=== PATIENT | female | born 1940 | race Caucasian/White ===

== ENCOUNTER → 2018-03-30 | Outpatient (CLI) | payer OTHER | LOC: FIMAGING 10:08 | PROVIDERS: ATTEND Internal Medicine | DX: R92.8 Other abnormal and inconclusive findings on diagnostic imaging of breast (principal) ==

== ENCOUNTER 2018-05-22 09:28 | Observation (INO) | payer OTHER ==
[~2018-05-22 09:28] MED LIST: POVIDONE-IODINE 20 ML in SODIUM CL IRRIG SOLUTION 500 ML IRR ONE; ROPIVACAINE 0.2% 80 MG, EPINEPHrine 0.2 MG, KETOROLAC TROMETHAMINE 30 MG in SYRINGE 0 ML IU ONE; TRANEXAMIC ACID 1,000 MG in NS 100 ML IV ONE; TRANEXAMIC ACID 3,000 MG in NS (SYRINGE) 50 ML IRR ONE
[2018-05-22] MEDS ORDERED: ACETAMINOPHEN 325 MG TAB PO ONE (10:04)
[2018-05-22] MEDS ORDERED: FAMOTIDINE 20 MG TAB PO ONE (10:04)
[2018-05-22] MEDS ORDERED: LIDOCAINE 1% 2 ML INJ ID PRN (10:04)
[2018-05-22] MEDS ORDERED: GABAPENTIN 300 MG CAP PO ONE (10:04)
[2018-05-22] MEDS ORDERED: LR 1,000 ML IV ONE (10:04)
[2018-05-22] MEDS ORDERED: ONDANSETRON 4 MG/2 ML VIAL IVP ONE (10:04)
[2018-05-22] MEDS ORDERED: ceFAZolin 2 GM/DEXTROSE 100 ML IV ONE (10:04)
[2018-05-22] MEDS ORDERED: DEXAMETHASONE 4 MG/ML VIAL IVP ONE (10:04)
[2018-05-22] MEDS ORDERED: VANCOMYCIN 1 GM VIAL ONE (12:23)
[2018-05-22] MEDS ORDERED: TRANEXAMIC ACID 3,000 MG/50 ML BAG IRR ONE (12:23)
[2018-05-22] MEDS ORDERED: ceFAZolin 1 GM/5 ML SYR ONE (12:24)
[2018-05-22] MEDS ORDERED: ceFAZolin 1 GM VIAL ONE (12:24)
--- NOTE | 2018-05-22 12:24 | PDANEPAE ---
ANE History of Present Illness 77 y/o female needing a right knee arthroplasty ANE Past Medical History - Cardiovascular History Hx Hypertension: No Hx Arrhythmias: No Hx Chest Pain: No Hx Coronary Artery / Peripheral Vascular Disease: No Hx CHF / Valvular Disease: No Hx Palpitations: No - Pulmonary History Hx COPD: No Hx Asthma/Reactive Airway Disease: No Hx Recent Upper Respiratory Infection: No Hx Oxygen in Use at Home: No Hx Sleep Apnea: No Sleep Apnea Screening Result - Last Documented: Negative - Neurologic History Hx Cerebrovascular Accident: No Hx Seizures: No Hx Dementia: No - Endocrine History Hx Diabetes: No Endocrine History Comment: HYPOTHYROID - Renal History Hx Renal Disorders: Yes Renal History Comment: SLIGHT UA LEAKAGE WITH SNEEZING. PREV KIDNEY STONE - Liver History Hx Hepatic Disorders: No - Neurological & Psychiatric Hx Hx Neurological and Psychiatric Disorders: No - Cancer History Hx Cancer: No - Congenital Disorder History Hx Congenital Disorders: No - GI History Hx Gastrointestinal Disorders: Yes Gastrointestinal History Comment: OCCASIONAL HEARTBURN - Other Health History Other Health History: OSTEOPENIA. OSTEOARTHRITIS - Chronic Pain History Chronic Pain: Yes (RT KNEE) - Surgical History Prior Surgeries: LT TOTAL KNEE 2011. FELIPE KNEE SCOPES. APPENDECTOMY. TONSILLECTOMY ANE Review of Systems Review of Systems: - Exercise capacity METS (RN): 4 METS ANE Patient History - Allergies Allergies/Adverse Reactions: hydrocodone bitartrate [From Vicodin] Allergy (Mild, Verified 05/18/18 15:11) Vomiting Sulfa (Sulfonamide Antibiotics) Allergy (Mild, Verified 05/18/18 15:10) NAUSEA oxycodone [From Percocet] Allergy (Verified 05/18/18 15:43) bowel obstruction - Home Medications Home Medications: Cholecalciferol Vit D3 [Vitamin D3 2000 units (OTC)] 2,000 units PO DAILY [Last Taken 05/20/18] Simvastatin [Zocor 40 mg (RX)] 40 mg PO HS 03/14/12 [Last Taken 05/21/18] Levothyroxine [Synthroid 75 mcg (*)] 75 mcg PO DAILY06 05/18/18 [Last Taken 01/01] Pantoprazole Sodium [Protonix 40mg (*)] 40 mg PO BID PRN 05/18/18 [Last Taken ] - NPO status NPO Since - Liquids (Date): 05/22/18 NPO Since - Liquids (Time): 08:30 NPO Since - Solids (Date): 05/21/18 NPO Since - Solids (Time): 21:00 - Smoking Hx Smoking Status: Never smoked ANE Labs/Vital Signs - Vital Signs Blood Pressure: 130/73 Heart Rate: 75 Respiratory Rate: 20 O2 Sat (%): 95 Height: 154.94 cm Weight: 66.224 kg ANE Physical Exam - ASA Status ASA Status: II ANE Anesthesia Plan Anesthesia Plan: spinal Regional Anesthesia: adductor canal FNB
--- NOTE | 2018-05-22 12:36 | PDHPUP ---
History & Physical Update H&P update statement: This history and physical update is based on an assessment of the patient which was completed after admission or registration (within 24 hours), but prior to the surgery/procedure. H&P update: H&P reviewed & patient examined
[2018-05-22] MEDS ORDERED: PROPOFOL/EMULSION 500 MG/50 ML BOTTLE IV ONE (13:02)
[2018-05-22] MEDS ORDERED: LIDOCAINE 2% 5 ML SDV ONE (13:38)
[2018-05-22] MEDS ORDERED: NALOXONE HCL 0.4 MG/ML INJ IVP PRN (14:39)
[2018-05-22] MEDS ORDERED: fentaNYL 100 MCG/2 ML INJ IVP PRN (14:39)
[2018-05-22] MEDS ORDERED: LR 500 ML IV PRN (14:39)
[2018-05-22] MEDS ORDERED: PHENYLEPHRINE HCL 100 MCG/ML SYR IVP PRN (14:39)
--- NOTE | 2018-05-22 14:39 | POSTANESTH ---
Post Anesthetic Evaluation Respiratory Status: Normal, Stable Level of Consciousness/Mental Status: Can Participate in Eval Pain Control: Adequate, Prn Tx Ordered Nausea/Vomiting Control: Adequate, Prn Tx Ordered Complications Possibly Related to Anesthesia: None Noted
[2018-05-22] MEDS ORDERED: ROPIVACAINE HCL 150 MG/30 ML INJ ONE (14:49)
--- NOTE | 2018-05-22 14:57 | POSTOPPROG ---
Post Op Note Date of Operation: 05/22/18 Surgeon: Garfield Arora Computer Repair Instructor: Olivier Anesthesiologist: Maria Luisa Anesthesia: IV Sedation, Spinal Post-op Diagnosis: Right knee degenerative arthritis Procedure: Right total knee arthroplasty Inf/Abcess present in the surg proc area at time of surgery?: No EBL: 50-100 (Adductor canal block in PACU with indwelling catheter.)
[2018-05-22] MEDS ORDERED: PANTOPRAZOLE SODIUM 40 MG TAB PO PRN (15:07)
[2018-05-22] MEDS ORDERED: CYCLOBENZAPRINE 10 MG TAB PO PRN (15:08)
[2018-05-22] MEDS ORDERED: METOCLOPRAMIDE 10 MG/2 ML VIAL IVP PRN (15:08)
[2018-05-22] MEDS ORDERED: DIPHENOXYLATE/ATROPINE LOMOTIL 1 TAB PO PRN (15:08)
[2018-05-22] MEDS ORDERED: NS 500 ML IV PRN (15:08)
[2018-05-22] MEDS ORDERED: MAGNESIUM HYDROXIDE 30 ML UDCUP PO PRN (15:08)
[2018-05-22] MEDS ORDERED: LACTULOSE 20 GM/30 ML UDCUP PO PRN (15:08)
[2018-05-22] MEDS ORDERED: ONDANSETRON 4 MG/2 ML VIAL IVP PRN (15:08)
[2018-05-22] MEDS ORDERED: diphenhydrAMINE 25 MG CAP PO PRN (15:08)
[2018-05-22] MEDS ORDERED: BISACODYL 10 MG SUPP PR PRN (15:08)
[2018-05-22] MEDS ORDERED: TEMAZEPAM 15 MG CAP PO PRN (15:08)
[2018-05-22] MEDS ORDERED: POLYETHYLENE GLYCOL 3350 17 GM PKT PO PRN (15:08)
[2018-05-22] MEDS ORDERED: ONDANSETRON DISINTEGRATING 4 MG TAB PO PRN (15:08)
[2018-05-22] MEDS ORDERED: PROMETHAZINE HCL 25 MG SUPPR PR PRN (15:08)
[2018-05-22] MEDS ORDERED: PROMETHAZINE HCL 25 MG/ML INJ IVP PRN (15:08)
[2018-05-22] MEDS ORDERED: LR 1,000 ML IV SCH (15:30)
--- NOTE | 2018-05-22 15:52 | GOP ---
DATE OF OPERATION: 05/22/2018 SURGEON: Garfield Arora MD DIESEL ROLLER OPERATOR: CAREY Wade and Kevyn Blackburn CFA. ANESTHESIA: A combination of Marcaine, spinal, IV sedation, and adductor canal block. ANESTHESIOLOGIST: Dr. Deloris Glass PREOPERATIVE DIAGNOSIS: Right knee severe degenerative arthritis with varus deformity. POSTOPERATIVE DIAGNOSIS: Right knee severe degenerative arthritis with varus deformity. PROCEDURE PERFORMED: Right total knee arthroplasty, cemented, Larson and Nephew Journey II, posterior stabilized. FINDINGS: DESCRIPTION OF PROCEDURE: The patient was given 2 g of IV Ancef preoperatively within 60 minutes of surgery. She also received IV tranexamic acid at a dose of 1000 mg. She was placed on the operating room table and given spinal anesthesia with Marcaine by Dr. Glass. She was then placed supine and giv en IV sedation. A Dobson catheter was not used. She wore a TOLU stocking and SCD on the nonoperative leg. Her right lower extremity was prepped with ChloraPrep from the upper thigh tourniquet to the ti ps of the toes. It was draped free using sterile sheets, stockinette, and Ioban plastic adhesive sabra pe. The lower leg was wrapped with compressive Coban. The leg was exsanguinated with elevation and a 6-i nch compressive wrap, and the tourniquet was inflated to 250 mmHg. The [employer] time-out was performed to verify the correct patient identity and the c orrect surgical side and site. The [place] time-out was also performed. The Soft Scienceayo leg holding device was sterilely attached to the operating room table and used throughout the procedure to help position the knee. A straight midline incision made centered on the patella. Subcutaneous tissues were sharply divided and hemostasis was obtained using electrocautery. A medial subcutaneous flap was developed and the capsule and synovium were opened in medial parapatellar fash ion. Degenerative changes were present in her medial compartment and patellofemoral joint. The medi al capsule and periosteum were elevated off the rim of the medial tibial plateau all the way around t o the posteromedial corner. Her medial collateral ligament was released enough to balance the medial side of the knee and helped correct the varus deformity. In order to improve exposure, her patella was prepared first. The original thickness of the patella was measured. Peripheral osteophytes were removed. I cut a flat surface on the back of the patella. The patella was sized for a 35 mm round resurfacing component. I removed enough bone from the jordan lla, such that the remaining bone, plus the thickness of the patellar component recreated the origina l thickness of the patella. The composite thickness was 23 mm. The intramedullary alignment guide system was used to set up the distal femoral cut. The distal femu r was cut in 6 degrees of valgus. I made a +2 mm cut on the distal femur. The sizing jig was used t o determine proper femoral sizing. She was a true size 3 without a shift. The 5-in-1 cutting block was applied, and the anterior and posterior condylar cuts and chamfer cuts were made. The final jig was used to remove the central portion of the distal femur to accommodate the posterior stabilized fe moral component. I was careful to determine proper rotation by referencing off [place]ites[place] line and o ther bony landmarks. Each cut was checked for accuracy. The femur was sized for a size 3 posterior stabilized component. Next, the tibia was prepared. The proximal tibial cut was made using the extramedullary alignment gu jared system. The cut was made in a few degrees of posterior slope. I was careful to achieve proper v arus valgus alignment and proper rotation. The posterior compartment was cleared of meniscal remnant s. Osteophytes were removed from the back of her femoral condyles. I checked the flexion and extens ion gaps. I had to do a little bit more release on her medial collateral ligament in order to get eq ual, balanced and rectangular gaps. The tibia was sized for a size 3 component. With the trial comp onents in place, I selected an 11 mm polyethylene posterior stabilized tibial insert. The knee came to full extension and flexed to 130 degrees. Her ligaments were stable and balanced in 90 degrees of flexion and in 5 degrees of extension. The trial patellar button was applied, and tracking was chec ked. Tracking was excellent without any digital pressure. 40 mL of the joint anesthetic cocktail were injected into the posterior capsule, the quadriceps muscl e and tendon areas, and the subcutaneous tissues along the skin edges. The surfaces were prepared for cementing. They were carefully cleaned with the pulsating lavage irri gation and thoroughly dried. The CarboJet device was used to blow dry the cancellous surfaces. A do uble batch of high viscosity methylmethacrylate cement with 2 g of powdered vancomycin was mixed. Wh ile it was still in a doughy state, all 3 components were cemented in place. Excess cement was remov ed before it hardened. The 11 mm trial tibial insert was tried again and was the proper thickness. The actual component was inserted and locked into place. The knee was thoroughly irrigated 1 final time with a dilute Betadi ne solution. The tourniquet was deflated. Total tourniquet time was 49 minutes. I instilled 50 cc of tranexamic acid solution into the knee joint. The knee was packed with a Kerlix and wrapped with a 6 inch SAL w rap and left this way for about 3 minutes. The vastus medialis portion of the extensor mechanism was repaired with several interrupted figure-of -eight #2 FiberWire sutures. The capsule and synovium were closed first with multiple interrupted fi [id number] 0 PDS sutures, followed by a running. barbed Ethicon Stratafix PDO suture. The subcuta neous tissues were closed with a running 0 barbed Ethicon Stratafix Monoderm suture. The skin was cl osed with a running 3-0 barbed Ethicon Stratafix Monoderm subcuticular suture. The skin was sealed w ith 1/2 inch Steri-Strips. The wound was covered with a large Mepilex waterproof dressing and a 6-in ch compressive wrap. A long-leg TOLU stocking and SCD were applied, followed by the cooling device. The patient wore a stocking and SCD on the opposite leg during the procedure. The sacral Mepilex bibiana ssing was applied. I used a size 3 Larson and Nephew cemented Oxinium posterior stabilized femoral component, a size 3 ce mented tibial base plate, 11 mm posterior stabilized tibial insert, and a 35 mm cemented round all-po lyethylene resurfacing patellar component. The estimated blood loss following deflation of the tourniquet was about 100 cc. Sponge and needle count were correct on 2 occasions. She was awakened from anesthesia, transferred to her [facility], and taken to PACU in satisfacto ry condition. There were no recognized intraoperative complications. In the PACU for additional pos toperative pain control, Dr. Glass performed an adductor canal block with an indwelling catheter. Mando Pascal and Kevyn Blackburn acted as surgical assistants. Their assistance was a medical necess ity for safe completion of the procedure. /[id number]/MODL
[2018-05-22] MEDS: ACETAMINOPHEN 325 MG TAB PO SCH (17:21)
[2018-05-22] MEDS: ATORVASTATIN CALCIUM 20 MG TAB PO SCH (17:21)
[2018-05-22] MEDS: KETOROLAC 15 MG/1 ML SDV IVP SCH (17:22)
[2018-05-22] MEDS: traMADol 50 MG TAB PO PRN (18:38)
[2018-05-22] MEDS: SENNOSIDES/DOCUSATE SODIUM TAB PO SCH (20:13)
[2018-05-22] MEDS: FAMOTIDINE 20 MG TAB PO SCH (20:13)
[2018-05-22] MEDS: ceFAZolin 2 GM/DEXTROSE 100 ML IV SCH (20:36)
[2018-05-22] MEDS: ASPIRIN 325 MG TAB PO SCH (22:59)
[2018-05-23] MEDS: KETOROLAC 15 MG/1 ML SDV IVP SCH ×3 (00:47→11:35)
[2018-05-23] MEDS: ACETAMINOPHEN 325 MG TAB PO SCH ×3 (00:49→11:35)
[2018-05-23] MEDS: ceFAZolin 2 GM/DEXTROSE 100 ML IV SCH (05:13)
[2018-05-23] MEDS ORDERED: LEVOTHYROXINE 75 MCG TAB PO SCH (06:00)
[2018-05-23] MEDS: ASPIRIN 325 MG TAB PO SCH (08:08)
[2018-05-23] MEDS: FAMOTIDINE 20 MG TAB PO SCH (08:08)
[2018-05-23] MEDS: ATORVASTATIN CALCIUM 20 MG TAB PO SCH (08:09)
[2018-05-23] MEDS: SENNOSIDES/DOCUSATE SODIUM TAB PO SCH (08:09)
[2018-05-23] MEDS: traMADol 50 MG TAB PO PRN ×2 (08:13→14:20)
[2018-05-23] MEDS ORDERED: FERROUS SULFATE 140 MG TAB.ER PO SCH (09:00)
--- NOTE | 2018-05-23 09:23 | SOAPPROG ---
SOAP Progress Note Assessment/Plan: Assessment: Afebrile. Mild pain. She has been walking in the [place] and she has done stairs with physical therapy. Her dressing is dry. She has 90 degrees of flexion. Postop H&H are good. Postop films look excellent. Plan: Long leg alignment film. Discharge later this morning. 05/23/18 09:22 Objective: Vital Signs Temp Pulse Resp BP Pulse Ox 36.8 C 63 16 114/60 97 05/23/18 04:00 05/23/18 07:50 05/23/18 07:50 05/23/18 07:50 05/23/18 07:50 Laboratory Results 05/23/18 04:19 05/22/18 05/23/18 05/24/18 05:59 05:59 05:59 Intake Total 2010 Output Total 1500 550 Balance 510 -550 ICD10 Worksheet Patient Problems: Problems Problem Status Onset Osteoarthritis of right knee Acute
--- NOTE | 2018-05-23 09:39 | ASMTLACE ---
MAURIE Length of stay for Answers: 1 day current admission Acuity / Level of Answers: No Care: Did the patient have an inpatient admission? Comorbidities - select Answers: Opioid dependence all that apply / Chronic pain Other Notes: Hypothyroid # of Emergency department Answers: 1-2 visits in the last 6 months Score: 7 Date Signed: 05/23/2018 09:39 AM Electronically Signed By:Dina Johnson RN
--- NOTE | 2018-05-23 09:40 | GDS ---
ADMISSION DIAGNOSIS: Right knee severe degenerative arthritis. DISCHARGE DIAGNOSIS: Right knee severe degenerative arthritis. OPERATION PERFORMED: May 22, 2018: A right total knee arthroplasty. POSTOPERATIVE COMPLICATIONS: None. CONDITION ON DISCHARGE: Improved. DESCRIPTION OF HOSPITAL COURSE: The patient was admitted to the hospital the morning of surgery. He r admission CBC, electrolytes, BUN, and creatinine were normal. The same day, under a combination of Marcaine, spinal, IV sedation, and adductor canal block, she underwent a right total knee arthroplas ty. Postoperatively, she was treated with multimodal DVT prophylaxis, including aspirin. On the postoperative day, her hemoglobin and hematocrit were 13.2 and 39.5. She was seen by Physical The rapy and made good progress with ambulation, stairs, and knee range of motion. By the time of discha rge, she was afebrile, and she was independent walking with a walker. DISPOSITION: The patient discharged to her home. She will go to outpatient physical therapy next we ek. Continue aspirin 325 mg p.o. daily for 21 days. She is allergic to oxycodone and Vicodin. She will use tramadol, Tylenol, and Celebrex for pain control. Continue TOLU stockings for 1 week. I lloyd l see her back in the office on June 11, 2018. If there are any problems, she is to call me at [facility] office. /[id number]/MODL
--- NOTE | 2018-05-23 09:41 | ASMTCMCOM ---
CM Note CM Note Notes: Reviewed chart and spoke w/MD, pt will dc home w/support of when medically stable CM available for any changes. DC Plan: Independent Date Signed: 05/23/2018 09:40 AM Electronically Signed By:Dina Johnson RN
[2018-05-23] MEDS ORDERED: ROPIVACAINE HCL 150 MG/30 ML INJ ONE (10:13)
[2018-05-23] MEDS ORDERED: LIPID EMULSION 20% 100 ML IV PRN (10:52)
--- NOTE | 2018-05-23 10:55 | PDPAINCON ---
Pain Management Consultation Patient referred by : Ulysses - Subjective Pain is: low, well controlled Activity: able to ambulate - Objective Technique: continuous peripheral nerve block (Catheter pulled after bolus given. Tip intact.) Continuous infusion: ropivicaine Bolus (ml): 20 (ropivicaine .5%) Catheter site: clean, dry, intact Sensory and motor exam: consistent with block Vital signs: stable
[2018-05-23 11:24] VITALS: BP 112/61
== END 2018-05-23 14:29 | disposition home or self-care (01) ==
LOC: F3N 09:28
PROVIDERS: ADMIT Orthopaedic Surgery; ATTEND Orthopaedic Surgery
PROC: 0SRC0JZ Replacement of Right Knee Joint with Synthetic Substitute, Open Approach (ICD-10-PCS; principal; 2018-05-22 11:45)
DX: M17.11 Unilateral primary osteoarthritis, right knee (principal)
CPT/HCPCS: 27447; 73560; 77073; 88311; 97110; 97161; 97165; C1713; C1776; G8978; G8979; G8980; G8987; G8988; G8989; J0171; J0690; J1100; J1885; J2704; J2795; J3370

== ENCOUNTER → 2018-09-27 | Outpatient (CLI) | payer OTHER | LOC: FIMAGING 09:07 | PROVIDERS: ATTEND Internal Medicine | DX: R92.8 Other abnormal and inconclusive findings on diagnostic imaging of breast (principal) ==